=== PATIENT | male | born 1970 | race Caucasian/White ===

== ENCOUNTER 2025-06-15 20:41 | Emergency (ER) | payer OTHER ==
[~2025-06-15] VITALS: Ht 175.3 cm; Wt 135.2 kg
[2025-06-15 21:09] VITALS: BP 134/91; PULSE 62; RESP 20; TEMP 97.6; O2SAT 97
[2025-06-15 21:19] VITALS: BP 134/91; PULSE 62; RESP 20; TEMP 97.6; O2SAT 97
[2025-06-15] MEDS ORDERED: OFIRMEV 100 ML IV ONE (21:24)
[2025-06-15] MEDS ORDERED: NS 1000ML 1,000 ML ONE (21:24)
[2025-06-15 21:26] LABS: BASOPHIL # 0.0 10^3/uL (0.0-0.1); BASOPHIL % 0.3 % (0.2-1.2); EOSINOPHIL # 0.2 10^3/uL (0.0-0.2); EOSINOPHIL % 1.8 % (0.0-5.0); HEMATOCRIT(ML) 53.1 % (37.0-53.0); IG % 0.20 % (0.00-0.50); LYMPHOCYTES # 1.39 10^3/uL1 (1.0-4.8); LYMPHOCYTES % 12.4 % (24.0-44.0); MEAN CORP HGB 27.3 pg (26-34); MEAN CORP HGB CONCENTRATION 32.0 g/dL (33-36.5); MEAN CORP VOLUME 85.2 fL (78-100); MONOCYTES # 0.5 10^3/uL (0.3-0.8); MONOCYTES % 4.2 % (5.0-12.0); NEUTROPHIL # 9.1 10^3/uL (1.8-7.7); NEUTROPHILS % 81.1 % (41.0-85.0); RED BLOOD CELL 6.23 10^6/uL (4.50-5.90); RED CELL DISTRIBUTION WIDTH 15.6 % (11.5-14.5); WHITE BLOOD CELL 11.2 10^3/uL (4.5-11.0)
[2025-06-15] MEDS: NS 1000ML 1,000 ML IV ONE (21:27)
[2025-06-15] MEDS: OFIRMEV 100 ML IV STA (21:28)
[2025-06-15 21:38] LABS: LEUKOCYTE ESTERASE ,URINE NEGATIVE (NEGATIVE); NITRATE,URINE NEGATIVE (NEGATIVE)
[2025-06-15 21:39] LABS: APPEARANCE,URINE CLEAR; UA COLOR YELLOW
[2025-06-15 21:42] LABS: INR 1.0; PROTHROMBIN PROTIME 10.5 SEC (9.3-11.6)
[2025-06-15 21:45] LABS: ALANINE AMINOTRANSFERASE(ML) 33.0 U/L (12-78); ALBUMIN(ML) 4.3 g/dL (3.4-5.0); CREATININE SERUM 1.64 mg/dL (0.59-1.40); EST GFR, NON-AA 44.0 (>/=60)
[2025-06-15] MEDS ORDERED: ZOFRAN ONE (22:01)
[2025-06-15] MEDS ORDERED: DILAUDID 0.5 MG/0.5 ML SYRINGE ONE (22:02)
[2025-06-15] MEDS: DILAUDID 0.5 MG/0.5 ML SYRINGE IV STA (22:18)
[2025-06-15] MEDS: ZOFRAN IV STA (22:18)
[2025-06-15 22:52] VITALS: BP 121/90; PULSE 62; RESP 20; TEMP 97.6; O2SAT 97
[2025-06-15] MEDS ORDERED: SUBLIMAZE 100MCG/2ML ONE (23:36)
[2025-06-15] MEDS: SUBLIMAZE 100MCG/2ML IV STA (23:43)
[2025-06-15 23:49] VITALS: BP 139/86; PULSE 74; RESP 20; O2SAT 95
== END 2025-06-15 23:57 | disposition home or self-care (01) ==
LOC: ER 20:41
DX: E86.0 Dehydration (principal); R11.2 Nausea with vomiting, unspecified; R10.11 Right upper quadrant pain; Z88.5 Allergy status to narcotic agent
CPT/HCPCS: 99285; 74177; 96374; 96361; 96375; 80053; 85025; 86677; 36415; 84484; 81001; 83690; 85610; 85730; 93005; J7030; J0131; J2405; J3010; Q9967; Q9965

== ENCOUNTER 2025-06-19 01:01 | Emergency (ER) | payer OTHER ==
[~2025-06-19] VITALS: Ht 175.3 cm; Wt 138.3 kg
[2025-06-19 01:28] VITALS: BP 117/73; PULSE 77; RESP 18; TEMP 97.9; O2SAT 94
[2025-06-19] MEDS ORDERED: SUBLIMAZE 100MCG/2ML ONE (02:35)
[2025-06-19] MEDS: SUBLIMAZE 100MCG/2ML IV STA (02:39)
[2025-06-19 03:09] LABS: ALBUMIN(ML) 4.1 g/dL (3.4-5.0); CREATININE SERUM 1.56 mg/dL (0.59-1.40); EST GFR, NON-AA 46.6 (>/=60)
[2025-06-19 03:10] LABS: ALANINE AMINOTRANSFERASE(ML) 129.0 U/L (12-78)
[2025-06-19 03:58] VITALS: BP 115/76; PULSE 70; RESP 18; TEMP 97.9; O2SAT 94
[2025-06-19 04:14] LABS: HEMATOCRIT(ML) 53.0 % (37.0-53.0); MEAN CORP HGB 27.3 pg (26-34); MEAN CORP HGB CONCENTRATION 32.1 g/dL (33-36.5); MEAN CORP VOLUME 85.2 fL (78-100); RED BLOOD CELL 6.22 10^6/uL (4.50-5.90); RED CELL DISTRIBUTION WIDTH 15.9 % (11.5-14.5); WHITE BLOOD CELL 7.1 10^3/uL (4.5-11.0)
[2025-06-19 04:15] LABS: BASOPHIL # 0.1 10^3/uL (0.0-0.1); BASOPHIL % 0.7 % (0.2-1.2); EOSINOPHIL # 0.4 10^3/uL (0.0-0.2); EOSINOPHIL % 5.2 % (0.0-5.0); IG % 0.10 % (0.00-0.50); LYMPHOCYTES # 1.25 10^3/uL1 (1.0-4.8); LYMPHOCYTES % 17.6 % (24.0-44.0); MONOCYTES # 0.5 10^3/uL (0.3-0.8); MONOCYTES % 6.3 % (5.0-12.0); NEUTROPHIL # 5.0 10^3/uL (1.8-7.7); NEUTROPHILS % 70.1 % (41.0-85.0)
[2025-06-19 05:49] VITALS: BP 104/54; PULSE 87; RESP 18; TEMP 97.9; O2SAT 96
== END 2025-06-19 06:00 | disposition short-term general hospital (02) ==
LOC: ER 01:01
DX: K80.50 Calculus of bile duct without cholangitis or cholecystitis without obstruction (principal); R17 Unspecified jaundice; E11.9 Type 2 diabetes mellitus without complications; Z88.5 Allergy status to narcotic agent; Z90.49 Acquired absence of other specified parts of digestive tract
CPT/HCPCS: 99285; 96374; 76705; 80053; 85025; 36415; 83690; 93005; J3010